=== PATIENT | male | born 1960 | race Caucasian/White ===

== ENCOUNTER 2020-11-04 08:03 | Emergency (ER) | payer OTHER ==
[2020-11-04] MEDS ORDERED: fentaNYL 100 MCG/2 ML SDV IVPUSH ONE (08:22)
[2020-11-04] MEDS ORDERED: Lactated Ringers 1,000 ML IV ONE (08:22)
[2020-11-04] MEDS ORDERED: Ondansetron 4 MG/2 ML SDV IVPUSH ONE (08:22)
[2020-11-04] MEDS ORDERED: Ketorolac 30 MG/ML SDV IVPUSH ONE (08:25)
[2020-11-04] MEDS ORDERED: Orphenadrine 60 MG/2 ML Inj IV STA (08:25)
[2020-11-04] MEDS ORDERED: Sodium Chloride 0.9% 10 ML Syringe FLUSH PRN (08:26)
--- NOTE | 2020-11-04 08:35 | EDM.PDOC ---
ED HPI GENERAL MEDICAL PROBLEM - General Stated Complaint: L LEFT BACK PAIN Time Seen by Provider: 11/04/20 08:10 Source of Information: Reports: Patient History Limitations: Reports: No Limitations - History of Present Illness INITIAL COMMENTS - FREE TEXT/NARRATIVE: Patient comes emergency department today with complaints of left flank pain. This patient awoke this morning and should onset of crampy type left flank pain. He has had this in the past and it was a kidney stone. He has never had to have them removed he has been able to pass them on his own in the past. He has no fever or chills. No chest pain or shortness of breath or difficulty breathing. No gross hematuria. No dysuria or urinary frequency. No black or tarry stools. No other abdominal pain nausea or vomiting. No Covid exposure no Covid symptoms. Left Flank Pain Score (Numeric/FACES): 10 - Related Data Allergies Allergy/AdvReac Type Severity Reaction Status Date / Time Penicillins Allergy Stomach Verified 07/07/19 11:27 Upset Home Meds: Home Meds Aspirin [Halfprin] 81 mg PO DAILY 07/07/19 [History] Flaxseed Oil [Flaxseed] 1 tab PO DAILY 07/07/19 [History] Ibuprofen 4 cap PO Q6HR 07/07/19 [History] atorvaSTATin [Lipitor] 20 mg PO BEDTIME 07/07/19 [History] lisinopriL [Prinivil] 5 mg PO DAILY 07/07/19 [History] Acetaminophen/HYDROcodone [[place] 325-5 MG] 1 tab PO Q4H PRN #12 tablet 11/04/20 [Rx] Tamsulosin HCl [Flomax] 0.4 mg PO DAILY #7 cap.er.24h 11/04/20 [Rx] Past Medical History HEENT History: Reports: Other (See Below) Other HEENT History: dry eye syndrome, color blind, iris nevus Cardiovascular History: Reports: High Cholesterol, Hypertension Respiratory History: Reports: Sleep Apnea Genitourinary History: Reports: Renal Calculus Musculoskeletal History: Reports: Other (See Below) Other Musculoskeletal History: rotator cuff tear Neurological History: Reports: TIA - Past Surgical History Other HEENT Surgeries/Procedures: LEFT SIDED FACIAL RECONSTRUCTION ED ROS GENERAL - Review of Systems Review Of Systems: Comprehensive ROS is negative, except as noted in HPI. ED EXAM, RENAL/ - Physical Exam Exam: See Below Text/Narrative:: The patient is actively pacing about the room back and forth holding his left flank when I enter the room he appears in mild to moderate distress. Exam Limited By: No Limitations General Appearance: Alert, Anxious, Moderate Distress Eye Exam: Bilateral Eye: EOMI Ears: Normal External Exam Nose: Normal Inspection Throat/Mouth: Normal Inspection Head: Atraumatic, Normocephalic Neck: Normal Inspection, Non-Tender Respiratory/Chest: No Respiratory Distress, Lungs Clear, Normal Breath Sounds, Chest Non-Tender Cardiovascular: Normal Peripheral Pulses, Regular Rate, Rhythm GI/Abdominal: Normal Bowel Sounds, Soft, Non-Tender, No Distention, Pelvis Stable (Male) Exam: Deferred Rectal (Males) Exam: Deferred Back Exam: Normal Inspection, Full Range of Motion, CVA Tenderness (L). No: CVA Tenderness (R), Paraspinal Tenderness, Vertebral Tenderness Extremities: Normal Inspection, Normal Range of Motion, Normal Capillary Refill Neurological: Alert, Oriented, Normal Cognition, Normal Gait, No Motor/Sensory Deficits Psychiatric: Normal Affect, Normal Mood Skin Exam: Warm, Dry, Intact, Normal Color, No Rash Course - Vital Signs Last Recorded V/S: Last Vital Signs Temp 96.9 F 11/04/20 08:05 Pulse 83 11/04/20 08:05 Resp 16 11/04/20 08:05 BP 165/88 H 11/04/20 08:41 Pulse Ox 97 11/04/20 08:05 - Orders/Labs/Meds Orders: Active Orders 24 hr Category Date Time Status Sodium Chloride 0.9% [Saline Flush] Med 11/04/20 08:26 Active 10 ml FLUSH ASDIRECTED PRN Peripheral IV Insertion Adult [OM.PC] Stat Oth 11/04/20 08:26 Ordered Medication Orders Sodium Chloride (Saline Flush) 10 ml FLUSH ASDIRECTED PRN PRN Reason: Keep Vein Open Labs: Laboratory Tests 11/04/20 11/04/20 11/04/20 Range/Units 08:12 08:15 08:15 WBC 4.7 (4.0-10.0) x10^3/uL RBC 5.02 (4.5-6.0) x10^6/uL Hgb 14.6 (14.0-18.0) g/dL Hct 43.2 (40.0-52.0) % MCV 86.1 (78.0-93.0) fL MCH 29.1 (26.0-32.0) pg MCHC 33.8 (32.0-36.0) g/dL RDW Coeff of [place] 12.6 (10.0-15.0) % Plt Count 179 (130-400) x10^3/uL Neut % (Auto) 62.7 (50.0-80.0) % Lymph % (Auto) 26.9 (25.0-50.0) % [place] % (Auto) 7.9 (2.0-11.0) % Eos % (Auto) 2.3 (0.0-4.0) % Baso % (Auto) 0.2 (0.2-1.2) % Sodium 142 (136-145) mmol/L Potassium 4.0 (3.5-5.1) mmol/L Chloride 107 (98-107) mmol/L Carbon Dioxide 26 (21-32) mmol/L Anion Gap 13.0 (10-20) mmol/L BUN 18 (7-18) mg/dL Creatinine 1.2 (0.70-1.30) mg/dL Est Cr Clr Drug Dosing 61.97 mL/min Estimated GFR (MDRD) > 60 Glucose 124 H (74-106) mg/dL Calcium 9.6 (8.5-10.1) mg/dL Corrected Calcium 9.68 (8.5-10.1) mg/dL Total Bilirubin 0.4 (0.2-1.0) mg/dL AST 20 (15-37) U/L ALT 46 (16-63) U/L Alkaline Phosphatase 67 (46-116) U/L Total Protein 7.0 (6.4-8.2) g/dL Albumin 3.9 (3.4-5.0) g/dL Globulin 3.1 Albumin/Globulin Ratio 1.26 Urine Color Yellow (YELLOW) Urine Appearance Clear (CLEAR) Urine pH 6.5 (5.0-8.0) Ur Specific [place] 1.025 Urine Protein Negative (NEGATIVE) mg/dL Urine Glucose (UA) Negative (NEGATIVE) mg/dL Urine Ketones Negative (NEGATIVE) mg/dL Urine Occult Blood Negative (NEGATIVE) Urine Nitrite Negative (NEGATIVE) Urine Bilirubin Negative (NEGATIVE) Urine Urobilinogen 1.0 (0.2) EU/dL Ur Leukocyte Esterase Negative (NEGATIVE) Meds: Medications Generic Name Dose Route Start Last Admin Trade Name Freq PRN Reason Stop Dose Admin Sodium Chloride 10 ml 11/04/20 08:26 Saline Flush FLUSH ASDIRECTED PRN Keep Vein Open Discontinued Medications Generic Name Dose Route Start Last Admin Trade Name Freq PRN Reason Stop Dose Admin Hydrocodone Bitart/Acetaminophen 1 packet 11/04/20 10:14 11/04/20 10:31 Take Home: Acetam/Hydrocodon 325-5 Mg, 5 Pack PO 11/04/20 10:15 1 packet ONETIME ONE Administration Fentanyl 100 mcg 11/04/20 08:22 11/04/20 08:35 Sublimaze IVPUSH 11/04/20 08:23 100 mcg ONETIME ONE Administration Hydromorphone HCl 0.5 mg 11/04/20 09:58 11/04/20 10:06 Dilaudid IV 11/04/20 09:59 0.5 mg ONETIME ONE Administration Lactated Ringer's 1,000 mls @ 999 mls/hr 11/04/20 08:22 11/04/20 08:35 Ringers, Lactated IV 11/04/20 09:22 999 mls/hr ONETIME ONE Administration Ketorolac Tromethamine 30 mg 11/04/20 08:25 11/04/20 08:36 Toradol IVPUSH 11/04/20 08:26 30 mg ONETIME ONE Administration Ondansetron HCl 4 mg 11/04/20 08:22 11/04/20 08:35 Zofran IVPUSH 11/04/20 08:23 4 mg ONETIME ONE Administration Orphenadrine Citrate 60 mg 11/04/20 08:25 11/04/20 08:36 Norflex IV 11/04/20 08:26 60 mg NOW STA Administration Tamsulosin HCl 0.4 mg 11/04/20 10:14 11/04/20 10:31 Flomax PO 11/04/20 10:15 0.4 mg ONETIME ONE Administration - Radiology Interpretation Free Text/Narrative:: CT abdomen pelvis without contrast per radiology shows a 3 x 2 mm distal left ureteral calculus with mild upstream hydronephrosis. Additionally nonobstructing nephrolithiasis with otherwise mild stone burden. He does have a 6 mm diameter calculus in the left kidney as well that is nonobstructing. Otherwise unremarkable CT scan. - Re-Assessments/Exams Free Text/Narrative Re-Assessment/Exam: 11/04/20 08:34 Patient had an IV established. LR 1 L wide open. Fentanyl 100 mcg IV push. Zofran 4 mg IV push. Ketorolac 30 mg IV push. Norflex 60 mg IV push. Labs were drawn. UA pending. 11/04/20 10:10 Patient did have quite a bit of improvement of his symptoms. Interestingly his urine is negative for any blood. His CT scan clearly shows multiple kidney stones 1 at the UVJ on the left side most consistent with his symptoms today. With mild upstream hydroureteral nephrosis. Dilaudid for pain management. He has a rather large nonobstructing stone within the left renal pelvis approximately 6 mm. And he has some other stones that are concerning that we will become of issue in the future. Consider for lithotripsy would be appropriate with this 1 large stone within the renal pelvis is nonobstructing at this time. The patient subsequently was pain-free. We talked about management at home with Flomax. He really needs to increase his fluids. If he is not pain-free in the next couple of days to recheck with his primary care and/or urology to consider urological evaluation. We will send him home with hydrocodone and Flomax. He is comfortable this plan his questions are answered. Departure - Departure Time of Disposition: 10:15 Disposition: Home, Self-Care 01 Clinical Impression: Kidney stone on left side, Nephrolithiasis - Discharge Information Prescriptions: Tamsulosin HCl [Flomax] 0.4 mg PO DAILY #7 cap.er.24h Acetaminophen/HYDROcodone [[place] 325-5 MG] 1 tab PO Q4H PRN #12 tablet PRN Reason: Pain Instructions: Renal Colic, [id number], Kidney Stones, [id number] Referrals: Carlton Noland PA [Primary Care Provider] - Additional Instructions: Make sure to increase your fluids as much as possible over the next couple of days. Decrease caffeine intake. Tylenol and/or ibuprofen as needed for pain. Flomax 1 tablet daily for the next 7 days. Pain not controlled with above [place] 1 tab by mouth every 4 hours as needed pain. Caution sedation. Starter pack given from the emergency department and prescription sent to the patient's pharmacy. Return to the ED if new or worsening symptoms. Recheck with PCP in the next 3-5 days if not improving sooner if worse. With the size of the one stone in the left kidney I would ask your PCP to refer you to urology for a lithotripsy to help break that stone up prior to it becoming a problem. Sepsis Event Note (ED) - Focused Exam Vital Signs: Vital Signs Temp Pulse Resp BP Pulse Ox 11/04/20 08:41 165/88 H 11/04/20 08:05 96.9 F 83 16 186/105 H 97 - My Orders Last 24 Hours: My Active Orders 11/04/20 08:26 Sodium Chloride 0.9% [Saline Flush] 10 ml FLUSH ASDIRECTED PRN Peripheral IV Insertion Adult [OM.PC] Stat - Assessment/Plan Last 24 Hours: My Active Orders 11/04/20 08:26 Sodium Chloride 0.9% [Saline Flush] 10 ml FLUSH ASDIRECTED PRN Peripheral IV Insertion Adult [OM.PC] Stat
[2020-11-04 09:19] LABS: CHLORIDE,CL 107 mmol/L (98-107); SODIUM,NA 142 mmol/L (136-145)
[2020-11-04] MEDS ORDERED: HYDROmorphone 0.5 MG/0.5 ML Syringe IV ONE (09:58)
--- NOTE | 2020-11-04 09:58 | CT ---
[id number] CT/CT Abdomen Pelvis WO IV EXAM: CT Abdomen Pelvis WO IV CLINICAL DATA: Bilateral flank pain. COMPARISON STUDY: None. FINDINGS: Lung bases are clear. 2-3 mm distal left ureteral calculus near the UVJ with mild upstream hydroureteronephrosis. Additional nonobstructing nephrolithiasis left greater than right. Largest calculus is on the left measuring up to 6 mm in diameter. Prostate gland is enlarged. Urinary bladder is unremarkable. Few scattered colonic diverticula. No evidence of acute diverticulitis. There is however circumferential wall thickening throughout the colon and rectum with relative sparing of the ascending colon and cecum. Small sliding-type hiatus hernia. No small bowel obstruction or inflammation. Spondylosis, including L4-5 facet joint arthropathy with mild grade 1 anterolisthesis IMPRESSION: 3 x 2 mm distal left ureteral calculus with mild upstream hydroureteronephrosis. Additional nonobstructing nephrolithiasis. Overall stone burden is mild. Abnormal appearance of the colon and rectal wall suggesting mild changes of colitis. Other findings are described above. Jose Carlos Hernandez MD 11/04/20 0957 Thank you for allowing us to participate in the care of your patient.
[2020-11-04] MEDS ORDERED: Tamsulosin 0.4 MG Cap.ER PO ONE (10:14)
[2020-11-04] MEDS ORDERED: Take Home: Acetaminophen/HYDROcodone 325-5 MG, 5 Tab Pack PO ONE (10:14)
== END 2020-11-04 10:25 | disposition home or self-care (01) ==
LOC: VM.ED 08:03
DX: N13.2 Hydronephrosis with renal and ureteral calculous obstruction (principal); E78.00 Pure hypercholesterolemia, unspecified; I10 Essential (primary) hypertension; Z86.73 Personal history of transient ischemic attack (TIA), and cerebral infarction without residual deficits; Z79.899 Other long term (current) drug therapy; Z79.82 Long term (current) use of aspirin
CPT/HCPCS: 74176; 80053; 81003; 85025; 99284; A9270-GY; J1170; J1885; J2360; J2405; J3010; J7120

== ENCOUNTER 2025-08-27 14:14 | Emergency (ER) | payer OTHER ==
[2025-08-27] MEDS: Take Home: Cephalexin 500 MG Cap, 6 Cap Pack PO ONE (14:37)
== END 2025-08-27 14:45 | disposition home or self-care (01) ==
LOC: VM.ED 14:14
DX: L03.012 Cellulitis of left finger (principal); I10 Essential (primary) hypertension; E78.00 Pure hypercholesterolemia, unspecified; Z79.899 Other long term (current) drug therapy; Z88.0 Allergy status to penicillin
CPT/HCPCS: 99283; A9270-GY